=== PATIENT | female | born 1940 | race Caucasian/White ===

== ENCOUNTER → 2016-12-01 | Outpatient (CLI) | payer MEDICARE, MEDICAID ==
[2016-12-01 17:11] LABS: ABSOLUTE EOSINOPHILS # (AUTO) 0.1 10^3/uL (0.0-0.6); ABSOLUTE LYMPHOCYTES (AUTO) 1.2 10^3/uL (0.5-4.7); ABSOLUTE MONOCYTES (AUTO) 0.6 10^3/uL (0.1-1.4); ABSOLUTE NEUT (AUTO) 6.4 10^3/uL (1.7-8.2); BASOPHILS % (AUTO) 0.4 % (0-2); HEMATOCRIT 40.1 % (36.0-47.0); HEMOGLOBIN 13.6 g/dL (12.0-15.5); HGB HCT DIFFERENCE 0.7; LYMPHOCYTES % (AUTO) 14.6 % (13-45); MEAN CORPUSCULAR HEMOGLOBIN 30.1 pg (27.0-33.4); MEAN CORPUSCULAR VOLUME 88 fl (80-97); MONOCYTES % (AUTO) 7.7 % (3-13); RED BLOOD COUNT 4.53 10^6/uL (3.72-5.28); SEGMENTED NEUTROPHILS % (AUTO) 76.3 % (42-78); WHITE BLOOD COUNT 8.4 10^3/uL (4.0-10.5)
== END ==
LOC: OD 16:29
PROVIDERS: ATTEND Specialist
DX: D50.9 Iron deficiency anemia, unspecified (principal)
CPT/HCPCS: 36415; 85025

== ENCOUNTER 2017-02-26 18:28 | Inpatient (IN) | payer MEDICARE, MEDICAID ==
--- NOTE | 2017-02-26 18:54 | ER Document Report ---
ED Medical Screen (RME) - General Mode of Arrival: Ambulatory Information source: Patient TRAVEL OUTSIDE OF THE [place] IN LAST 30 DAYS: No <FOREIGN REICH - Last Filed: 02/26/17 18:52> <CORWIN CANNON - Last Filed: 02/27/17 14:43> - General Chief Complaint: Leg Pain Stated Complaint: SORE ON LEG Time Seen by Provider: 02/26/17 18:52 Notes: 76-year-old female presents to ED for a infected sore to the right ankle. She states she was seen by Dr. Tripathi on 02/23/2017 and told she had an infected diabetic sore and was started on clindamycin. She was told to follow-up with the wound clinic on Wednesday. She states the infection has gotten worse emergency room. She states she is afraid of losing her foot if she does not come in and get seen. I have greeted and performed a rapid initial assessment of this patient. A comprehensive ED assessment and evaluation of the patient, analysis of test results and completion of medical decision making process will be conducted by an additional ED providers. (FOREIGN REICH) - Related Data Allergies/Adverse Reactions: codeine [Codeine] Adverse Reaction (Mild, Verified 02/26/17 18:38) Nausea and vomiting Past Medical History - Past Medical History Cardiac Medical History: Reports: Hx Atrial Fibrillation, Hx Congestive Heart Failure, Hx Hypercholesterolemia, Hx Hypertension Denies: Hx Coronary Artery Disease, Hx Heart Attack Pulmonary Medical History: Reports: Hx Bronchitis, Hx Pneumonia Denies: Hx Asthma, Hx COPD Neurological Medical History: Denies: Hx Cerebrovascular Accident, Hx Seizures Endocrine Medical History: Reports: Hx Diabetes Mellitus Type 2 Renal/ Medical History: Denies: Hx Peritoneal Dialysis Musculoskeltal Medical History: Reports Hx Arthritis Past Surgical History: Reports: Hx Hysterectomy. Denies: Hx Pacemaker - Immunizations Hx Diphtheria, Pertussis, Tetanus Vaccination: Yes <FOREIGN REICH - Last Filed: 02/26/17 18:52> Course - Laboratory Result Diagrams: 02/27/17 05:03 02/27/17 05:03 <CORWIN CANNON - Last Filed: 02/27/17 14:43> - Vital Signs Vital signs: Temp Pulse Resp BP Pulse Ox 98.7 F 91 20 142/63 H 97 02/27/17 11:42 02/27/17 11:42 02/27/17 11:42 02/27/17 11:42 02/27/17 11:42 - Laboratory Laboratory results interpreted by me: 02/26/17 02/26/17 19:20 19:20 Chloride 97 L Est GFR (Non-Af Amer) 59 L Glucose 434 H* Hemoglobin A1c % 8.7 H AST 44 H Doctor's Discharge <FOREIGN REICH - Last Filed: 02/26/17 18:52> <CORWIN CANNON - Last Filed: 02/27/17 14:43> - Discharge Clinical Impression: diabetic wound, Cellulitis, failed outpaitent therapy Condition: Stable Disposition: ADMITTED OBSERVATION
[2017-02-26 19:40] LABS: ABSOLUTE EOSINOPHILS # (AUTO) 0.1 10^3/uL (0.0-0.6); ABSOLUTE LYMPHOCYTES (AUTO) 1.4 10^3/uL (0.5-4.7); ABSOLUTE MONOCYTES (AUTO) 0.7 10^3/uL (0.1-1.4); ABSOLUTE NEUT (AUTO) 4.9 10^3/uL (1.7-8.2); BASOPHILS % (AUTO) 0.6 % (0-2); EOSINOPHILS % (AUTO) 1.5 % (0-6); HEMOGLOBIN 14.5 g/dL (12.0-15.5); HGB HCT DIFFERENCE 0.5; LYMPHOCYTES % (AUTO) 19.5 % (13-45); MEAN CORPUSCULAR HEMOGLOBIN 30.6 pg (27.0-33.4); MEAN CORPUSCULAR HGB CONC 33.7 g/dL (32.0-36.0); MEAN CORPUSCULAR VOLUME 91 fl (80-97); MONOCYTES % (AUTO) 9.5 % (3-13); RED BLOOD COUNT 4.74 10^6/uL (3.72-5.28); RED CELL DISTRIBUTION WIDTH 13.5 % (11.5-14.0); SEGMENTED NEUTROPHILS % (AUTO) 68.9 % (42-78); WHITE BLOOD COUNT 7.2 10^3/uL (4.0-10.5)
[2017-02-26 20:00] LABS: ALANINE AMINOTRANSFERASE 42 U/L (9-52); ALKALINE PHOSPHATASE 102 U/L (38-126); ANION GAP 12 (5-19); ASPARTATE AMINO TRANSFERASE 44 U/L (14-36); BILIRUBIN,DIRECT 0.3 mg/dL (0.0-0.4); BILIRUBIN,TOTAL 0.5 mg/dL (0.2-1.3); BLOOD UREA NITROGEN 15 mg/dL (7-20); CALCIUM 9.3 mg/dL (8.4-10.2); CARBON DIOXIDE 30 mmol/L (22-30); CHLORIDE 97 mmol/L (98-107); CREATININE RESULT 0.92 mg/dL (0.52-1.25); POTASSIUM 4.4 mmol/L (3.6-5.0); SODIUM 138.5 mmol/L (137-145); TOTAL PROTEIN 7.1 g/dL (6.3-8.2)
[2017-02-26 20:14] LABS: GLUCOSE 434 mg/dL (75-110)
[2017-02-26] MEDS ORDERED: VANCOMYCIN HCL INJ 1000 MG VIAL IV ONE (21:09)
[2017-02-26] MEDS ORDERED: PIPERACILLIN/TAZOBACTAM 3.375 GM VIAL IV ONE (21:09)
--- NOTE | 2017-02-26 21:10 | ER Document Report ---
ED General - General Chief Complaint: Leg Pain Stated Complaint: SORE ON LEG Time Seen by Provider: 02/26/17 18:52 Mode of Arrival: Ambulatory Information source: Patient Notes: 76 yr old female diabetic presents with a right leg wound of over 1 week duration. pt seen by her poditrist placed on clinda for 4 days and noted the blister popped and the redness and worsened TRAVEL OUTSIDE OF THE [place] IN LAST 30 DAYS: No - HPI Onset: Last week Onset/Duration: Persistent, Worse Quality of pain: Achy Severity: Mild Pain Level: 1 Associated symptoms: Other Exacerbated by: Denies Relieved by: Denies Similar symptoms previously: Yes Recently seen / treated by doctor: Yes - Related Data Allergies/Adverse Reactions: codeine [Codeine] Adverse Reaction (Mild, Verified 02/26/17 18:38) Nausea and vomiting Past Medical History - General Information source: Patient - Social History Smoking Status: Never Smoker Cigarette use (# per day): No Chew tobacco use (# tins/day): No Smoking Education Provided: No Frequency of alcohol use: None Drug Abuse: None Family History: Reviewed & Not Pertinent Patient has suicidal ideation: No Patient has homicidal ideation: No - Past Medical History Cardiac Medical History: Reports: Hx Atrial Fibrillation, Hx Congestive Heart Failure, Hx Hypercholesterolemia, Hx Hypertension Denies: Hx Coronary Artery Disease, Hx Heart Attack Pulmonary Medical History: Reports: Hx Bronchitis, Hx Pneumonia Denies: Hx Asthma, Hx COPD Neurological Medical History: Denies: Hx Cerebrovascular Accident, Hx Seizures Endocrine Medical History: Reports: Hx Diabetes Mellitus Type 2 Renal/ Medical History: Denies: Hx Peritoneal Dialysis GI Medical History: Reports: Hx Gastroesophageal Reflux Disease Musculoskeltal Medical History: Reports Hx Arthritis Psychiatric Medical History: Reports: Hx Depression Past Surgical History: Reports: Hx Hysterectomy, Hx Orthopedic Surgery - rt hip replacement 2004, carpal tunne release rt hand. Denies: Hx Pacemaker - Immunizations Hx Diphtheria, Pertussis, Tetanus Vaccination: Yes Hx Pneumococcal Vaccination: 09/06/09 Review of Systems - Review of Systems Notes: REVIEW OF SYSTEMS: CONSTITUTIONAL : Denies fever, chills, or sweats. Denies recent illness. EENT: Denies eye, ear, throat, or mouth pain or symptoms. Denies nasal or sinus congestion or discharge. Denies throat, tongue, or mouth swelling or difficulty swallowing. CARDIOVASCULAR: Denies chest pain. Denies palpitations or racing or irregular heart beat. Denies ankle edema. RESPIRATORY: Denies cough, cold, or chest congestion. Denies shortness of breath, difficulty breathing, or wheezing. GASTROINTESTINAL: Denies abdominal pain or distention. Denies nausea, vomiting , or diarrhea. Denies blood in vomitus, stools, or per rectum. Denies black, tarry stools. Denies constipation. GENITOURINARY: Denies difficulty urinating, painful urination, burning, frequency, blood in urine, or discharge. FEMALE GENITOURINARY: Denies vaginal bleeding, heavy or abnormal periods, irregular periods. Denies vaginal discharge or odor. MUSCULOSKELETAL: Denies back or neck pain or stiffness. Denies joint pain or swelling. SKIN: leg wound HEMATOLOGIC : Denies easy bruising or bleeding. LYMPHATIC: Denies swollen, enlarged glands. NEUROLOGICAL: Denies confusion or altered mental status. Denies passing out or loss of consciousness. Denies dizziness or lightheadedness. Denies headache. Denies weakness or paralysis or loss of use of either side. Denies problems with gait or speech. Denies sensory loss, numbness, or tingling. Denies seizures. PSYCHIATRIC: Denies anxiety or stress. Denies depression, suicidal ideation, or homicidal ideation. ALL OTHER SYSTEMS REVIEWED AND NEGATIVE. PHYSICAL EXAMINATION: GENERAL: Well-appearing, well-nourished and in no acute distress. HEAD: Atraumatic, normocephalic. EYES: Pupils equal round and reactive to light, extraocular movements intact, conjunctiva are normal. ENT: Nares patent, oropharynx clear without exudates. Moist mucous membranes. NECK: Normal range of motion, supple without lymphadenopathy LUNGS: Breath sounds clear to auscultation bilaterally and equal. No wheezes rales or rhonchi. HEART: Regular rate and rhythm without murmurs ABDOMEN: Soft, nontender, nondistended abdomen. No guarding, no rebound. No masses appreciated. Female : deferred Musculoskeletal: Normal range of motion, no pitting or edema. No cyanosis. NEUROLOGICAL: Cranial nerves grossly intact. Normal speech, normal gait. Normal sensory, motor exams PSYCH: Normal mood, normal affect. SKIN: area of cellulitis from the midfoot to the mid demarco, open blister Dictation was performed using Dahu recognition software Physical Exam - Vital signs Vitals: Temp Pulse Resp BP Pulse Ox 98.1 F 82 15 146/75 H 98 02/26/17 18:38 02/26/17 18:38 02/26/17 18:38 02/26/17 18:38 02/26/17 18:38 Course - Re-evaluation Re-evalutation: 02/27/17 03:42 pt is very hyperglycemic, started on iv fluoids pt will require iv antiobitcs due to failed out patient oral antibiotics - Vital Signs Vital signs: Temp Pulse Resp BP Pulse Ox 97.3 F 78 18 137/116 H 100 02/26/17 23:42 02/26/17 23:42 02/26/17 23:42 02/26/17 23:42 02/26/17 23:42 - Laboratory Result Diagrams: 02/26/17 19:20 02/26/17 19:20 Laboratory results interpreted by me: 02/26/17 02/26/17 19:20 19:20 Chloride 97 L Est GFR (Non-Af Amer) 59 L Glucose 434 H* Hemoglobin A1c % 8.7 H AST 44 H Discharge - Discharge Clinical Impression: diabetic wound, failed outpaitent therapy Cellulitis Qualifiers: Site of cellulitis: extremity Site of cellulitis of extremity: lower extremity Laterality: right Qualified Code(s): L03.115 - Cellulitis of right lower limb Condition: Stable Disposition: ADMITTED OBSERVATION Admitting Provider: Hospitalist Unit Admitted: Medical Floor
[2017-02-26] MEDS ORDERED: ACETAMINOPHEN 325 MG TABLET PO PRN (21:12)
[2017-02-26] MEDS ORDERED: MAGNESIUM HYDROXIDE SUSP 30 ML UDCUP PO PRN (21:12)
[2017-02-26] MEDS ORDERED: NORMAL SALINE 1000 ML 1,000 ML IV ONE (21:17)
[2017-02-26] MEDS ORDERED: DEXTROSE 50%-WATER 25 GM/50 ML DISP.SYRIN IV PRN ×2 (21:19)
[2017-02-26] MEDS ORDERED: GLUCAGON,HUMAN RECOMB 1 MG INJ IM PRN (21:19)
[2017-02-26] MEDS ORDERED: DEXTROSE 40% GEL 15 GM TUBE PO PRN ×2 (21:19)
[2017-02-26] MEDS ORDERED: VANCOMYCIN HCL 0 MG in DEXTROSE 5%-WATER 250 ML IV NR (21:30)
[2017-02-26] MEDS ORDERED: CYCLOSPORINE 0.05% OPH EMULSIO 0.4 ML DROPERETTE OD SCH (21:30)
[2017-02-26] MEDS: NORMAL SALINE 1000 ML 1,000 ML IV PRN ×2 (21:39→21:41)
[2017-02-26] MEDS ORDERED: (PENDING PHARMACY ID) (Diclofenac Sodium [Voltaren] 1 GM) TP SCH (22:00)
[2017-02-26] MEDS: HEPARIN SOD (PORCINE) 5,000 UNIT/ML 1 ML SYRINGE SUBCUT SCH (22:31)
[2017-02-26] MEDS: INSULIN LISPRO 100 UNIT/ML 3 ML VIAL SUBCUT PRN (22:42)
--- NOTE | 2017-02-26 23:07 | PDOC H&P ---
History of Present Illness Admission Date/PCP: 02/26/17 21:13 TANNER MASTERSON MD Patient complains of: Right leg ulcer History of Present Illness: SKIP HER is a 76 year old female with a past medical history of dementia, A. fib, hypertension, dyslipidemia and diabetes who had been in her usual state of health until approximately a week ago noting large 4 x 4 centimeter blister to the medial lower leg. She treated this with a topical antibiotic and was seen by her trim setter helper Dr. Mora who initiated clindamycin the blister has since ruptured and she has applied Silvadene ointment. The area has become red and tender to the posterior leg prompting her to seek evaluation emergency room where she is placed on vancomycin and Zosyn and referred to the hospitalist for admission. The patient admits several previous episodes which have resolved spontaneously. She denies new medications or exceptional poor control of diabetes. Past Medical History Cardiac Medical History: Reports: Atrial Fibrillation, Congestive Heart Failure , Hyperlipidema, Hypertension Denies: Coronary Artery Disease, Myocardial Infarction Pulmonary Medical History: Reports: Bronchitis, Pneumonia Denies: Asthma, Chronic Obstructive Pulmonary Disease (COPD) Neurological Medical History: Denies: Seizures Endocrine Medical History: Reports: Diabetes Mellitus Type 2 GI Medical History: Reports: Gastroesophageal Reflux Disease Musculoskeltal Medical History: Reports: Arthritis Psychiatric Medical History: Reports: Depression Hematology: Reports: Anemia Past Surgical History Past Surgical History: Reports: Hysterectomy, Orthopedic Surgery - rt hip replacement 2004, carpal tunne release rt hand Denies: Pacemaker Social History Information Source: Patient Smoking Status: Never Smoker Frequency of Alcohol Use: None Hx Recreational Drug Use: No Drugs: None - Advance Directive Resuscitation Status: Full Code Family History Family History: DM, Hypertension, Other - Brother with peripheral vascular disease Parental Family History Reviewed: Yes Children Family History Reviewed: Yes Sibling(s) Family History Reviewed.: Yes Medication/Allergy Home Medications: Citalopram Hydrobromide [Celexa 20 mg Tablet] 20 mg PO DAILY 02/08/12 Dexlansoprazole [Dexilant 60 mg Capsule] 60 mg PO DAILY 02/08/12 Diclofenac Sodium [Voltaren] 1 gm TP QID 02/08/12 Donepezil HCl [Aricept] 1 tab PO DAILY 02/08/12 Fluticasone Furoate [Veramyst] 2 spray NAREB DAILY 02/08/12 Furosemide [Lasix 40 mg Tablet] 80 mg PO BID 02/08/12 Hum Insulin NPH/Reg Insulin Hm [Novolin 70-30 100 Unit/ml Vial] 40 units SQ BID 02/08/12 Levothyroxine Sodium [Tirosint] 50 mcg PO DAILY 02/08/12 Memantine HCl [Namenda 10 mg Tablet] 10 mg PO BID 02/08/12 Triamcinolone 1 gm MC PRN PRN 02/08/12 Clotrimazole 1% Topical [Lotrimin 1% Topical Soln 10 ml] 1 applic TOP PRN PRN Ergocalciferol (Vitamin D2) [Drisdol] 1 tab PO [id number] 01/26/14 Meclizine HCl 1 tab PO QID PRN 01/26/14 Tramadol HCl 1 tab PO TID PRN 01/26/14 Albuterol Sulfate [Proair HFA] 1 - 2 puff IH Q4 PRN 07/31/14 Dabigatran Etexilate Mesylate [Pradaxa 150 mg Capsule] 150 mg PO Q12 07/31/14 Metoprolol Succinate 50 mg PO DAILY 07/31/14 Nitroglycerin [Nitrostat 0.4 mg (1/150 Gr) Tabs 25/Bottle] 1 tab SL Q5MP PRN Potassium Chloride [Klor-Con 10 Meq Tablet.sa] 20 meq PO DAILY #30 tablet.sa Simvastatin 20 mg PO QHS #30 tablet 08/01/14 Cyclosporine 0.05% Oph Emulsio [Restasis 0.05% Opthalmic Droperette] 1 drop OD ASDIR 07/23/15 Diltiazem HCl [Diltiazem 24Hr Cd] 240 mg PO DAILY 07/23/15 Allergies/Adverse Reactions: codeine [Codeine] Adverse Reaction (Mild, Verified 02/26/17 18:38) Nausea and vomiting Review of Systems Constitutional: ABSENT: chills, fever(s), headache(s), weight gain, weight loss Eyes: ABSENT: visual disturbances Ears: ABSENT: hearing changes Cardiovascular: ABSENT: chest pain, dyspnea on exertion, edema, orthropnea, palpitations Respiratory: ABSENT: cough, hemoptysis Gastrointestinal: ABSENT: abdominal pain, constipation, diarrhea, hematemesis, hematochezia, nausea, vomiting Genitourinary: ABSENT: dysuria, hematuria Musculoskeletal: ABSENT: joint swelling Integumentary: ABSENT: rash, wounds Neurological: ABSENT: abnormal gait, abnormal speech, confusion, dizziness, focal weakness, syncope Psychiatric: ABSENT: anxiety, depression, homidical ideation, suicidal ideation Endocrine: ABSENT: cold intolerance, heat intolerance, polydipsia, polyuria Hematologic/Lymphatic: ABSENT: easy bleeding, easy bruising Physical Exam Vital Signs: Temp Pulse Resp BP Pulse Ox 98.1 F 82 15 146/75 H 98 02/26/17 18:38 02/26/17 18:38 02/26/17 18:38 02/26/17 18:38 02/26/17 18:38 Intake & Output 02/25/17 02/26/17 02/27/17 11:59 11:59 11:59 Weight 102.3 kg General appearance: PRESENT: no acute distress, well-developed, well-nourished Head exam: PRESENT: atraumatic, normocephalic Eye exam: PRESENT: conjunctiva pink, EOMI, PERRLA. ABSENT: scleral icterus Ear exam: PRESENT: normal external ear exam Mouth exam: PRESENT: moist, tongue midline Neck exam: ABSENT: carotid bruit, JVD, lymphadenopathy, thyromegaly Respiratory exam: PRESENT: clear to auscultation mari. ABSENT: rales, rhonchi, wheezes Cardiovascular exam: PRESENT: RRR. ABSENT: diastolic murmur, rubs, systolic murmur Pulses: PRESENT: normal dorsalis pedis pul Vascular exam: PRESENT: normal capillary refill GI/Abdominal exam: PRESENT: normal bowel sounds, soft. ABSENT: distended, guarding, mass, organolmegaly, rebound, tenderness Rectal exam: PRESENT: deferred Extremities exam: PRESENT: full ROM, tenderness, +1 edema. ABSENT: calf tenderness, clubbing, pedal edema Neurological exam: PRESENT: alert, awake, oriented to person, oriented to place , oriented to time, oriented to situation, CN II-XII grossly intact. ABSENT: motor sensory deficit Psychiatric exam: PRESENT: appropriate affect, normal mood. ABSENT: homicidal ideation, suicidal ideation Skin exam: PRESENT: dry, intact, warm. ABSENT: cyanosis, rash Adult Front & Back Image: 1 - Circumferential erythema, 4 x 4 centimeter ulcer without exudate though tenderness involves the posterior leg Assessment & Plan - Diagnosis (1) Cellulitis Qualifiers: Site of cellulitis: extremity Site of cellulitis of extremity: lower extremity Laterality: right Qualified Code(s): L03.115 - Cellulitis of right lower limb Is this a current diagnosis for this admission?: YesPlan: Diabetic foot ulcer with cellulitis concerning for MRSA and extension to the posterior leg possibly Achilles tendinitis. She is placed on vancomycin and Zosyn empirically with blood and wound culture. Surgery consulted, outpatient wound care clinic anticipated (2) Diabetes Qualifiers: Diabetes mellitus type: type 1 Is this a current diagnosis for this admission?: YesPlan: Unclear control evaluate A1c continue sliding-scale insulin consider addition of long-acting insulin. (3) Afib Is this a current diagnosis for this admission?: YesPlan: Rate control on anticoagulation continue outpatient regiment - Time Time Spent: 30 to 50 Minutes - Inpatient Certification Medical Necessity: Need Close Monitoring Due to Risk of Patient Decompensation
[2017-02-27] MEDS ORDERED: PIPERACILLIN SODIUM/TAZOBACTAM 4.5 GM in NORMAL SALINE 100 ML IV SCH ×2
[2017-02-27] MEDS: DABIGATRAN ETEXILATE 150 MG CAPSULE PO SCH ×3 (00:49→21:49)
[2017-02-27] MEDS: SIMVASTATIN 10 MG TABLET PO SCH ×2 (00:49→21:49)
[2017-02-27] MEDS ORDERED: PIPERACILLIN/TAZOBACTAM 4.5 GM VIAL IV ONE (02:08)
[2017-02-27] MEDS: HEPARIN SOD (PORCINE) 5,000 UNIT/ML 1 ML SYRINGE SUBCUT SCH ×3 (06:04→21:49)
[2017-02-27] MEDS: LANSOPRAZOLE 30 MG TAB.RAP.DR PO SCH (06:04)
[2017-02-27 06:23] LABS: ABSOLUTE EOSINOPHILS # (AUTO) 0.1 10^3/uL (0.0-0.6); ABSOLUTE LYMPHOCYTES (AUTO) 1.8 10^3/uL (0.5-4.7); ABSOLUTE MONOCYTES (AUTO) 0.7 10^3/uL (0.1-1.4); ABSOLUTE NEUT (AUTO) 4.4 10^3/uL (1.7-8.2); BASOPHILS % (AUTO) 0.6 % (0-2); EOSINOPHILS % (AUTO) 2.1 % (0-6); HEMOGLOBIN 13.3 g/dL (12.0-15.5); HGB HCT DIFFERENCE -0.1; LYMPHOCYTES % (AUTO) 25.3 % (13-45); MEAN CORPUSCULAR HEMOGLOBIN 30.3 pg (27.0-33.4); MEAN CORPUSCULAR HGB CONC 33.2 g/dL (32.0-36.0); MEAN CORPUSCULAR VOLUME 91 fl (80-97); MONOCYTES % (AUTO) 10.4 % (3-13); RED BLOOD COUNT 4.38 10^6/uL (3.72-5.28); RED CELL DISTRIBUTION WIDTH 13.7 % (11.5-14.0); SEGMENTED NEUTROPHILS % (AUTO) 61.6 % (42-78); WHITE BLOOD COUNT 7.2 10^3/uL (4.0-10.5)
[2017-02-27 06:41] LABS: ANION GAP 10 (5-19); BLOOD UREA NITROGEN 13 mg/dL (7-20); CALCIUM 8.7 mg/dL (8.4-10.2); CARBON DIOXIDE 30 mmol/L (22-30); CHLORIDE 104 mmol/L (98-107); CREATININE RESULT 0.81 mg/dL (0.52-1.25); GLUCOSE 114 mg/dL (75-110); POTASSIUM 3.9 mmol/L (3.6-5.0); SODIUM 144.2 mmol/L (137-145)
--- NOTE | 2017-02-27 07:35 | PDOC PROGRESS REPORT ---
Subjective Progress Note for:: 02/27/17 Subjective:: 8d pain medial L leg around big ulcer in spite of Dr Barroso's clindamycin. Now about the same after debridement. Physical Exam Vital Signs: Temp Pulse Resp BP Pulse Ox 97.3 F 78 18 137/116 H 100 02/26/17 23:42 02/26/17 23:42 02/26/17 23:42 02/26/17 23:42 02/26/17 23:42 Intake & Output 02/25/17 02/26/17 02/27/17 07:59 07:59 07:59 Intake Total 600 Balance 600 Weight 231 lb 11.293 oz General appearance: PRESENT: no acute distress Respiratory exam: PRESENT: clear to auscultation mari Cardiovascular exam: PRESENT: irregular rhythm. ABSENT: diastolic murmur, systolic murmur GI/Abdominal exam: ABSENT: mass, organolmegaly, tenderness Extremities exam: PRESENT: pedal edema - 1+ Skin exam: PRESENT: other - medial L venous leg ulcer 6cm under fresh dressing with tender erythema lower 2 thirds of leg Results Laboratory Results: 02/27/17 05:03 02/27/17 05:03 02/27/17 02/27/17 05:03 05:03 WBC 7.2 RBC 4.38 Hgb 13.3 Hct 40.0 MCV 91 MCH 30.3 MCHC 33.2 RDW 13.7 Plt Count 275 Seg Neutrophils % 61.6 Lymphocytes % 25.3 Monocytes % 10.4 Eosinophils % 2.1 Basophils % 0.6 Absolute Neutrophils 4.4 Absolute Lymphocytes 1.8 Absolute Monocytes 0.7 Absolute Eosinophils 0.1 Absolute Basophils 0.0 Sodium 144.2 Potassium 3.9 Chloride 104 Carbon Dioxide 30 Anion Gap 10 BUN 13 Creatinine 0.81 Est GFR ( Amer) > 60 Est GFR (Non-Af Amer) > 60 Glucose 114 H Calcium 8.7 Assessment & Plan - Diagnosis (1) Cellulitis Qualifiers: Site of cellulitis: extremity Site of cellulitis of extremity: lower extremity Laterality: left Qualified Code(s): L03.116 - Cellulitis of left lower limb Is this a current diagnosis for this admission?: YesPlan: continue vanc & zosyn
[2017-02-27] MEDS: DILTIAZEM HCL 240 MG CAPSULE.CR PO SCH (09:37)
[2017-02-27] MEDS: DOCUSATE SODIUM 100 MG CAPSULE PO SCH ×2 (09:39→17:39)
[2017-02-27] MEDS: POTASSIUM CHLORIDE 10 MEQ TABLET.SA PO SCH (09:40)
[2017-02-27] MEDS: FUROSEMIDE 80 MG TABLET PO SCH ×2 (09:41→17:39)
[2017-02-27] MEDS: DONEPEZIL HCL 5 MG TABLET PO SCH (09:41)
[2017-02-27] MEDS: MEMANTINE HCL 10 MG TABLET PO SCH ×2 (09:42→17:39)
[2017-02-27] MEDS: METOPROLOL SUCCINATE 50 MG TAB.SR.24H PO SCH (09:42)
[2017-02-27] MEDS: CITALOPRAM HYDROBROMIDE 20 MG TABLET PO SCH (09:42)
[2017-02-27] MEDS: HUM INSULIN NPH/REG INSULIN HM 100 UNIT/1 ML 3 ML SUBCUT SCH ×2 (09:43→17:40)
[2017-02-27] MEDS ORDERED: FLUTICASONE FUROATE NAREB SCH (10:00)
[2017-02-27] MEDS ORDERED: (PENDING PHARMACY ID) (Diltiazem Hcl [Diltiazem 24hr Cd] 240 MG) PO SCH (10:00)
[2017-02-27] MEDS ORDERED: FUROSEMIDE 40 MG TABLET PO SCH (10:00)
[2017-02-27] MEDS ORDERED: LEVOTHYROXINE SODIUM 50 MCG PO SCH (10:00)
[2017-02-27] MEDS ORDERED: DONEPEZIL HCL PO SCH (10:00)
[2017-02-27] MEDS: VANCOMYCIN HCL 750 MG in DEXTROSE 5%-WATER 250 ML IV SCH ×2 (10:15→21:49)
[2017-02-27] MEDS: FLUTICASONE NASAL SPRAY 50 MCG/SPRY 120 SPRAY/16 GM NASL SCH (10:15)
[2017-02-27] MEDS: IPRATROPIUM/ALBUTEROL 0.5-2.5 MG/3 ML AMPUL NEB PRN (10:57)
--- NOTE | 2017-02-27 13:28 | OPERATIVE REPORT E ---
Operative Report NAME: SKIP HER : 1940 AGE: 76Y DATE OF SURGERY: 02/27/2017 ROOM: 402 PREOPERATIVE DIAGNOSIS: Advanced cellulitis, right lower extremity, with superficial ulcer. POSTOPERATIVE DIAGNOSIS: Advanced cellulitis, right lower extremity, with superficial ulcer. OPERATION: Excisional debridement of superficial ulcer, right lower extremity. SURGEON: BRET JOHNSTON M.D. ANESTHESIA: None. COMPLICATIONS: None. ESTIMATED BLOOD LOSS: None. DRAINS: None. SUMMARY OF PROCEDURE: The patient's right leg was exposed at bedside. Exudate and skin were sharply removed using index finger and fine scissors. The central portion of the superficial ulcer had some cellulous slough which was mopped off using a 4 x 4. The amount of tissue removed was approximately 0.5 gm. Appropriate dressings, leg elevation and nursing instruction provided. DICTATING PHYSICIAN: BRET JOHNSTON M.D. [id number] PHY#: [id number] ID: [id number] JOB#: [id number] ACCT: [id number] cc:BRET JOHNSTON M.D. >
[2017-02-27] MEDS: INSULIN LISPRO 100 UNIT/ML 3 ML VIAL SUBCUT PRN ×3 (14:55→22:25)
[2017-02-27] MEDS: PIPERACILLIN SODIUM/TAZOBACTAM 4.5 GM in NORMAL SALINE 100 ML IV SCH ×2 (14:57→21:51)
[2017-02-28] MEDS: PIPERACILLIN SODIUM/TAZOBACTAM 4.5 GM in NORMAL SALINE 100 ML IV SCH ×4 (03:17→21:48)
[2017-02-28 04:56] LABS: ABSOLUTE BASOPHILS # (AUTO) 0.1 10^3/uL (0.0-0.2); ABSOLUTE EOSINOPHILS # (AUTO) 0.1 10^3/uL (0.0-0.6); ABSOLUTE LYMPHOCYTES (AUTO) 1.8 10^3/uL (0.5-4.7); ABSOLUTE MONOCYTES (AUTO) 0.7 10^3/uL (0.1-1.4); ABSOLUTE NEUT (AUTO) 4.2 10^3/uL (1.7-8.2); BASOPHILS % (AUTO) 1.2 % (0-2); EOSINOPHILS % (AUTO) 1.9 % (0-6); HEMATOCRIT 39.1 % (36.0-47.0); HEMOGLOBIN 13.1 g/dL (12.0-15.5); HGB HCT DIFFERENCE 0.2; MEAN CORPUSCULAR HEMOGLOBIN 30.3 pg (27.0-33.4); MEAN CORPUSCULAR HGB CONC 33.6 g/dL (32.0-36.0); MEAN CORPUSCULAR VOLUME 90 fl (80-97); MONOCYTES % (AUTO) 10.4 % (3-13); RED BLOOD COUNT 4.33 10^6/uL (3.72-5.28); RED CELL DISTRIBUTION WIDTH 13.5 % (11.5-14.0); SEGMENTED NEUTROPHILS % (AUTO) 60.5 % (42-78)
[2017-02-28] MEDS: LANSOPRAZOLE 30 MG TAB.RAP.DR PO SCH (05:40)
[2017-02-28] MEDS: LEVOTHYROXINE SODIUM 0.05 MG TABLET PO SCH (06:02)
--- NOTE | 2017-02-28 07:18 | PDOC PROGRESS REPORT ---
Subjective Progress Note for:: 02/28/17 Subjective:: less R leg pain Physical Exam Vital Signs: Temp Pulse Resp BP Pulse Ox 98.5 F 89 17 141/86 H 99 02/27/17 23:51 02/27/17 23:51 02/27/17 23:51 02/27/17 23:51 02/27/17 23:51 Intake & Output 02/26/17 02/27/17 02/28/17 07:59 07:59 07:59 Intake Total 600 1792 Balance 600 1792 Weight 231 lb 11.293 oz 229 lb 4.492 oz General appearance: PRESENT: no acute distress Respiratory exam: PRESENT: clear to auscultation mari Cardiovascular exam: PRESENT: irregular rhythm, systolic murmur. ABSENT: diastolic murmur Murmur grade: 1 GI/Abdominal exam: ABSENT: mass, organolmegaly, tenderness Neurological exam: PRESENT: oriented to situation Psychiatric exam: PRESENT: appropriate affect Skin exam: PRESENT: erythema - less on R leg Results Laboratory Results: 02/28/17 03:44 02/27/17 05:03 02/28/17 03:44 WBC 7.0 RBC 4.33 Hgb 13.1 Hct 39.1 MCV 90 MCH 30.3 MCHC 33.6 RDW 13.5 Plt Count 267 Seg Neutrophils % 60.5 Lymphocytes % 26.0 Monocytes % 10.4 Eosinophils % 1.9 Basophils % 1.2 Absolute Neutrophils 4.2 Absolute Lymphocytes 1.8 Absolute Monocytes 0.7 Absolute Eosinophils 0.1 Absolute Basophils 0.1 Assessment & Plan - Diagnosis (1) Cellulitis Qualifiers: Site of cellulitis: extremity Site of cellulitis of extremity: lower extremity Laterality: right Qualified Code(s): L03.115 - Cellulitis of right lower limb Is this a current diagnosis for this admission?: YesPlan: continue zosyn & vanc. Consider home on augmentin in 1-2 days. (2) Diabetes Qualifiers: Diabetes mellitus type: type 2 Diabetes mellitus complication status: without complication Diabetes mellitus residential insulin use: with silica filter operator use Qualified Code(s): E11.9 - Type 2 diabetes mellitus without complications; Z79.4 - half-way (current) use of insulin Is this a current diagnosis for this admission?: YesPlan: increased insulin - Inpatient Certification Based on my medical assessment, after consideration of the patient's comorbidities, presenting symptoms, or acuity I expect that the services needed warrant INPATIENT care.: Yes I certify that my determination is in accordance with my understanding of Medicare's requirements for reasonable and necessary INPATIENT services [42 CFR 412.3e].: Yes Medical Necessity: Failure to Improve With Outpatient Therapy, Significant Comorbidiites Make Outpatient Treatment Too Risky, Need for IV Antibiotics, Risk of Complication if Not Cared For in Hospital - amputation
[2017-02-28] MEDS: HUM INSULIN NPH/REG INSULIN HM 100 UNIT/1 ML 3 ML SUBCUT SCH ×2 (07:54→17:42)
[2017-02-28] MEDS: DABIGATRAN ETEXILATE 150 MG CAPSULE PO SCH ×2 (10:08→21:47)
[2017-02-28] MEDS: POTASSIUM CHLORIDE 10 MEQ TABLET.SA PO SCH (10:09)
[2017-02-28] MEDS: DONEPEZIL HCL 5 MG TABLET PO SCH (10:10)
[2017-02-28] MEDS: FUROSEMIDE 80 MG TABLET PO SCH ×2 (10:11→17:40)
[2017-02-28] MEDS: DILTIAZEM HCL 240 MG CAPSULE.CR PO SCH (10:11)
[2017-02-28] MEDS: MEMANTINE HCL 10 MG TABLET PO SCH ×2 (10:11→17:41)
[2017-02-28] MEDS: METOPROLOL SUCCINATE 50 MG TAB.SR.24H PO SCH (10:12)
[2017-02-28] MEDS: FLUTICASONE NASAL SPRAY 50 MCG/SPRY 120 SPRAY/16 GM NASL SCH (10:13)
[2017-02-28] MEDS: VANCOMYCIN HCL 750 MG in DEXTROSE 5%-WATER 250 ML IV SCH (10:13)
[2017-02-28] MEDS: CITALOPRAM HYDROBROMIDE 20 MG TABLET PO SCH (10:13)
[2017-02-28] MEDS: DOCUSATE SODIUM 100 MG CAPSULE PO SCH ×2 (10:15→17:42)
[2017-02-28] MEDS: IPRATROPIUM/ALBUTEROL 0.5-2.5 MG/3 ML AMPUL NEB PRN (10:26)
[2017-02-28 10:37] LABS: CREATININE RESULT 0.73 mg/dL (0.52-1.25)
[2017-02-28] MEDS: INSULIN LISPRO 100 UNIT/ML 3 ML VIAL SUBCUT PRN (17:42)
[2017-02-28] MEDS: SIMVASTATIN 10 MG TABLET PO SCH (21:48)
[2017-02-28] MEDS: VANCOMYCIN HCL 1,250 MG in DEXTROSE 5%-WATER 250 ML IV SCH (22:57)
[2017-03-01] MEDS: PIPERACILLIN SODIUM/TAZOBACTAM 4.5 GM in NORMAL SALINE 100 ML IV SCH ×4 (03:30→21:37)
[2017-03-01 04:36] LABS: ABSOLUTE BASOPHILS # (AUTO) 0.1 10^3/uL (0.0-0.2); ABSOLUTE EOSINOPHILS # (AUTO) 0.2 10^3/uL (0.0-0.6); ABSOLUTE MONOCYTES (AUTO) 0.7 10^3/uL (0.1-1.4); ABSOLUTE NEUT (AUTO) 5.7 10^3/uL (1.7-8.2); BASOPHILS % (AUTO) 0.9 % (0-2); EOSINOPHILS % (AUTO) 1.8 % (0-6); HEMATOCRIT 39.6 % (36.0-47.0); HEMOGLOBIN 13.3 g/dL (12.0-15.5); HGB HCT DIFFERENCE 0.3; LYMPHOCYTES % (AUTO) 23.2 % (13-45); MEAN CORPUSCULAR HEMOGLOBIN 30.2 pg (27.0-33.4); MEAN CORPUSCULAR HGB CONC 33.6 g/dL (32.0-36.0); MEAN CORPUSCULAR VOLUME 90 fl (80-97); MONOCYTES % (AUTO) 8.7 % (3-13); RED BLOOD COUNT 4.41 10^6/uL (3.72-5.28); RED CELL DISTRIBUTION WIDTH 13.3 % (11.5-14.0); SEGMENTED NEUTROPHILS % (AUTO) 65.4 % (42-78); WHITE BLOOD COUNT 8.7 10^3/uL (4.0-10.5)
[2017-03-01] MEDS: LANSOPRAZOLE 30 MG TAB.RAP.DR PO SCH (06:00)
[2017-03-01] MEDS: LEVOTHYROXINE SODIUM 0.05 MG TABLET PO SCH (06:00)
[2017-03-01] MEDS: HUM INSULIN NPH/REG INSULIN HM 100 UNIT/1 ML 3 ML SUBCUT SCH ×2 (08:09→17:46)
--- NOTE | 2017-03-01 08:23 | PDOC PROGRESS REPORT ---
Subjective Progress Note for:: 03/01/17 Subjective:: R ankle still hurts Physical Exam Vital Signs: Temp Pulse Resp BP Pulse Ox 97.8 F 85 18 153/66 H 98 03/01/17 07:46 03/01/17 07:46 03/01/17 07:46 03/01/17 07:46 03/01/17 07:46 Intake & Output 02/28/17 03/01/17 03/02/17 07:59 07:59 07:59 Intake Total 1792 2200 Balance 1792 2200 Weight 229 lb 4.492 oz 219 lb 12.814 oz General appearance: PRESENT: no acute distress Murmur grade: 1 Skin exam: PRESENT: erythema - 4cm around L venous ulcer moderately tender Results Laboratory Results: 03/01/17 04:02 02/28/17 09:55 02/28/17 03/01/17 09:55 04:02 WBC 8.7 RBC 4.41 Hgb 13.3 Hct 39.6 MCV 90 MCH 30.2 MCHC 33.6 RDW 13.3 Plt Count 273 Seg Neutrophils % 65.4 Lymphocytes % 23.2 Monocytes % 8.7 Eosinophils % 1.8 Basophils % 0.9 Absolute Neutrophils 5.7 Absolute Lymphocytes 2.0 Absolute Monocytes 0.7 Absolute Eosinophils 0.2 Absolute Basophils 0.1 Creatinine 0.73 Est GFR ( Amer) > 60 Est GFR (Non-Af Amer) > 60 Assessment & Plan - Diagnosis (1) Cellulitis Qualifiers: Site of cellulitis: extremity Site of cellulitis of extremity: lower extremity Laterality: right Qualified Code(s): L03.115 - Cellulitis of right lower limb Is this a current diagnosis for this admission?: YesPlan: 1 more day IV antibiotics (2) Diabetes Qualifiers: Diabetes mellitus type: type 2 Diabetes mellitus complication status: without complication Diabetes mellitus [facility] insulin use: with [facility] use Qualified Code(s): E11.9 - Type 2 diabetes mellitus without complications Is this a current diagnosis for this admission?: YesPlan: stop sliding scale. Decrease to 30u bid - Inpatient Certification Medical Necessity: Failure to Improve With Outpatient Therapy, Need for IV Antibiotics
[2017-03-01] MEDS: FUROSEMIDE 80 MG TABLET PO SCH ×2 (09:47→17:47)
[2017-03-01] MEDS: POTASSIUM CHLORIDE 10 MEQ TABLET.SA PO SCH (09:49)
[2017-03-01] MEDS: MEMANTINE HCL 10 MG TABLET PO SCH ×2 (09:49→17:48)
[2017-03-01] MEDS: CITALOPRAM HYDROBROMIDE 20 MG TABLET PO SCH (09:49)
[2017-03-01] MEDS: METOPROLOL SUCCINATE 50 MG TAB.SR.24H PO SCH (09:49)
[2017-03-01] MEDS: DONEPEZIL HCL 5 MG TABLET PO SCH (09:49)
[2017-03-01] MEDS: DILTIAZEM HCL 240 MG CAPSULE.CR PO SCH (09:49)
[2017-03-01] MEDS: FLUTICASONE NASAL SPRAY 50 MCG/SPRY 120 SPRAY/16 GM NASL SCH (09:50)
[2017-03-01] MEDS: DABIGATRAN ETEXILATE 150 MG CAPSULE PO SCH ×2 (09:50→21:38)
[2017-03-01] MEDS: VANCOMYCIN HCL 1,250 MG in DEXTROSE 5%-WATER 250 ML IV SCH ×2 (09:51→22:50)
[2017-03-01] MEDS: CYCLOSPORINE 0.05% OPH EMULSIO 0.4 ML DROPERETTE OU SCH ×2 (09:51→17:48)
[2017-03-01] MEDS: SIMVASTATIN 10 MG TABLET PO SCH (21:37)
[2017-03-02] MEDS: PIPERACILLIN SODIUM/TAZOBACTAM 4.5 GM in NORMAL SALINE 100 ML IV SCH ×2 (03:39→08:54)
[2017-03-02] MEDS: LEVOTHYROXINE SODIUM 0.05 MG TABLET PO SCH (05:21)
[2017-03-02] MEDS: LANSOPRAZOLE 30 MG TAB.RAP.DR PO SCH (05:21)
[2017-03-02] MEDS ORDERED: HUM INSULIN NPH/REG INSULIN HM 100 UNIT/1 ML 3 ML SUBCUT SCH (05:29)
--- NOTE | 2017-03-02 07:36 | PDOC DISCHARGE SUMMARY ---
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 Is this a current diagnosis for this admission?: Yes - Additional Information Resuscitation Status: Full Code Discharge Diet: Diabetic Discharge Activity: Keep Legs Elevated Home Medications: Albuterol Sulfate [Proair HFA Inhalation Aerosol 8.5 gm MDI] 2 puff IH QIDP PRN 02/27/17 Atorvastatin Calcium [Lipitor 20 mg Tablet] 20 mg PO DAILY 02/27/17 Citalopram Hydrobromide [Celexa 20 mg Tablet] 20 mg PO DAILY 02/27/17 Cyclosporine 0.05% Oph Emulsio [Restasis 0.05% Oph Emulsion Pf 0.4 ml] 1 drop OU BID 02/27/17 Dabigatran Etexilate Mesylate [Pradaxa] 150 mg PO Q12 02/27/17 Dexlansoprazole [Dexilant 60 mg Capsule] 60 mg PO DAILY 02/27/17 Diltiazem HCl [Cardizem Cd] 240 mg PO DAILY 02/27/17 Donepezil HCl [Aricept] 10 mg PO DAILY 02/27/17 Fluticasone Propionate [Flonase Nasal [place] 50 Mcg/[place] 16 gm] 2 spray NASL DAILYP PRN 02/27/17 Furosemide [Lasix] 80 mg PO BID 02/27/17 Hum Insulin NPH/Reg Insulin Hm [Novolin 70-30 100 Unit/ml Vial] 40 units SQ BIDACBS 02/27/17 Levothyroxine Sodium [Synthroid 0.05 mg Tablet] 0.05 mg PO DAILY 02/27/17 Memantine HCl [Namenda 10 mg Tablet] 10 mg PO BID 02/27/17 Metoprolol Succinate [Toprol XL 100 mg Tablet] 100 mg PO DAILY 02/27/17 Potassium Chloride [K-Tab ER] 20 meq PO DAILY 02/27/17 Amox Tr/Potassium Clavulanate [Augmentin 875-125 mg Tablet] 1 tab PO BID #12 tablet 03/02/17 History of Present Illness Patient complains of: pain R leg History of Present Illness: SKIP HER is a 76 year old female with worsening pain around R venous ulcer on clindamycin from wound clinic. Hospital Course Hospital Course: Dr Herrera debrided ulcer. Pain and redness finally today have improved on vanc & zosyn. Physical Exam Vital Signs: Temp Pulse Resp BP Pulse Ox 97.7 F 100 17 152/83 H 96 03/02/17 00:47 03/02/17 00:47 03/02/17 00:47 03/02/17 00:47 03/02/17 00:47 Intake & Output 02/28/17 03/01/17 03/02/17 07:59 07:59 07:59 Intake Total 1792 2200 2110 Output Total 400 Balance 1792 2200 1710 Weight 229 lb 4.492 oz 219 lb 12.814 oz 219 lb 12.814 oz General appearance: PRESENT: no acute distress Respiratory exam: PRESENT: clear to auscultation mari Cardiovascular exam: PRESENT: irregular rhythm. ABSENT: diastolic murmur, systolic murmur, tachycardia Murmur grade: 1 GI/Abdominal exam: ABSENT: mass, organolmegaly, tenderness Extremities exam: ABSENT: pedal edema Skin exam: PRESENT: erythema - receding around R leg ulcer 5cm Results Laboratory Results: 03/01/17 04:02 02/28/17 09:55 Labs- Last Values WBC 8.7 10^3/uL (4.0-10.5) 03/01/17 04:02 RBC 4.41 10^6/uL (3.72-5.28) 03/01/17 04:02 Hgb 13.3 g/dL (12.0-15.5) 03/01/17 04:02 Hct 39.6 % (36.0-47.0) 03/01/17 04:02 MCV 90 fl (80-97) 03/01/17 04:02 MCH 30.2 pg (27.0-33.4) 03/01/17 04:02 MCHC 33.6 g/dL (32.0-36.0) 03/01/17 04:02 RDW 13.3 % (11.5-14.0) 03/01/17 04:02 Plt Count 273 10^3/uL (150-450) 03/01/17 04:02 Seg Neutrophils % 65.4 % (42-78) 03/01/17 04:02 Lymphocytes % 23.2 % (13-45) 03/01/17 04:02 Monocytes % 8.7 % (3-13) 03/01/17 04:02 Eosinophils % 1.8 % (0-6) 03/01/17 04:02 Basophils % 0.9 % (0-2) 03/01/17 04:02 Absolute Neutrophils 5.7 10^3/uL (1.7-8.2) 03/01/17 04:02 Absolute Lymphocytes 2.0 10^3/uL (0.5-4.7) 03/01/17 04:02 Absolute Monocytes 0.7 10^3/uL (0.1-1.4) 03/01/17 04:02 Absolute Eosinophils 0.2 10^3/uL (0.0-0.6) 03/01/17 04:02 Absolute Basophils 0.1 10^3/uL (0.0-0.2) 03/01/17 04:02 Sodium 144.2 mmol/L (137-145) 02/27/17 05:03 Potassium 3.9 mmol/L (3.6-5.0) 02/27/17 05:03 Chloride 104 mmol/L (98-107) 02/27/17 05:03 Carbon Dioxide 30 mmol/L (22-30) 02/27/17 05:03 Anion Gap 10 (5-19) 02/27/17 05:03 BUN 13 mg/dL (7-20) 02/27/17 05:03 Creatinine 0.73 mg/dL (0.52-1.25) 02/28/17 09:55 Est GFR ( Amer) > 60 (>60) 02/28/17 09:55 Est GFR (Non-Af Amer) > 60 (>60) 02/28/17 09:55 Glucose 114 mg/dL (75-110) H 02/27/17 05:03 POC Glucose 138 mg/dL (70-110) H 03/02/17 06:50 Hemoglobin A1c % 8.7 % (4.7-6.0) H 02/26/17 19:20 Calcium 8.7 mg/dL (8.4-10.2) 02/27/17 05:03 Total Bilirubin 0.5 mg/dL (0.2-1.3) 02/26/17 19:20 Direct Bilirubin 0.3 mg/dL (0.0-0.4) 02/26/17 19:20 Indirect Bilirubin Not Reportable 02/26/17 19:20 Neonat Total Bilirubin Not Reportable 02/26/17 19:20 AST 44 U/L (14-36) H 02/26/17 19:20 ALT 42 U/L (9-52) 02/26/17 19:20 Alkaline Phosphatase 102 U/L (38-126) 02/26/17 19:20 Total Protein 7.1 g/dL (6.3-8.2) 02/26/17 19:20 Albumin 4.0 g/dL (3.5-5.0) 02/26/17 19:20 Time Trough Drawn 0955 02/28/17 09:55 Vancomycin Trough 7.4 ug/mL (5.0-20.0) 02/28/17 09:55 C. difficile Tox (PCR) NEGATIVE (NEGATIVE) 03/01/17 08:15 Qualifiers PATEINT BEING DISCHARGED WITH ANY OF THE FOLLOWING DIAGNOSIS?: No Plan Discharge Plan: home on augmentin bid and duoderm twice a week. 6d ov. Continue wound clinic too.
[2017-03-02] MEDS: DONEPEZIL HCL 5 MG TABLET PO SCH (09:00)
[2017-03-02] MEDS: DABIGATRAN ETEXILATE 150 MG CAPSULE PO SCH (09:01)
[2017-03-02] MEDS: FUROSEMIDE 80 MG TABLET PO SCH (09:01)
[2017-03-02] MEDS: METOPROLOL SUCCINATE 50 MG TAB.SR.24H PO SCH (09:01)
[2017-03-02] MEDS: DILTIAZEM HCL 240 MG CAPSULE.CR PO SCH (09:01)
[2017-03-02] MEDS: FLUTICASONE NASAL SPRAY 50 MCG/SPRY 120 SPRAY/16 GM NASL SCH (09:01)
[2017-03-02] MEDS: CITALOPRAM HYDROBROMIDE 20 MG TABLET PO SCH (09:01)
[2017-03-02] MEDS: CYCLOSPORINE 0.05% OPH EMULSIO 0.4 ML DROPERETTE OU SCH (09:01)
[2017-03-02] MEDS: MEMANTINE HCL 10 MG TABLET PO SCH (09:01)
[2017-03-02] MEDS: POTASSIUM CHLORIDE 10 MEQ TABLET.SA PO SCH (09:01)
[2017-03-02] MEDS: VANCOMYCIN HCL 1,250 MG in DEXTROSE 5%-WATER 250 ML IV SCH (10:21)
[2017-03-02 11:54] VITALS: BP 125/71
== END 2017-03-02 14:20 | disposition home health service (06) | DRG 638 ==
LOC: ER 18:28 → EH 21:13 → 4N 23:41
PROVIDERS: ADMIT Internal Medicine; ATTEND Internal Medicine
PROC: 0HDKXZZ Extraction of Right Lower Leg Skin, External Approach (ICD-10-PCS; principal; 2017-02-27)
PROC: 3E0F73Z Introduction of Anti-inflammatory into Respiratory Tract, Via Natural or Artificial Opening (ICD-10-PCS; 2017-02-27)
DX: E11.621 Type 2 diabetes mellitus with foot ulcer (principal); L03.115 Cellulitis of right lower limb; L97.519 Non-pressure chronic ulcer of other part of right foot with unspecified severity; I83.013 Varicose veins of right lower extremity with ulcer of ankle; F03.90 Unspecified dementia, unspecified severity, without behavioral disturbance, psychotic disturbance, mood disturbance, and anxiety; I48.91 Unspecified atrial fibrillation; E78.5 Hyperlipidemia, unspecified; I11.0 Hypertensive heart disease with heart failure; I50.9 Heart failure, unspecified; K21.9 Gastro-esophageal reflux disease without esophagitis; M19.90 Unspecified osteoarthritis, unspecified site; F32.9 Major depressive disorder, single episode, unspecified; D64.9 Anemia, unspecified; Z79.4 Long term (current) use of insulin; Z96.641 Presence of right artificial hip joint; Z79.899 Other long term (current) drug therapy; Z88.6 Allergy status to analgesic agent; Z90.710 Acquired absence of both cervix and uterus; Z83.3 Family history of diabetes mellitus; Z82.49 Family history of ischemic heart disease and other diseases of the circulatory system; M25.511 Pain in right shoulder; M25.611 Stiffness of right shoulder, not elsewhere classified
CPT/HCPCS: 36415; 80048; 80053; 80202; 82565; 82962; 83036; 85025; 87040; 87070; 87075; 87205; 87493; 96365; 96372; 96375; 99284; J1644; J1815; J2543; J3370; J3490; J7030; J7060; J7620

== ENCOUNTER → 2017-05-18 | Outpatient (CLI) | payer MEDICARE, MEDICAID ==
[2017-05-18 16:25] LABS: ABSOLUTE BASOPHILS # (AUTO) 0.1 10^3/uL (0.0-0.2); ABSOLUTE EOSINOPHILS # (AUTO) 0.2 10^3/uL (0.0-0.6); ABSOLUTE LYMPHOCYTES (AUTO) 1.5 10^3/uL (0.5-4.7); ABSOLUTE MONOCYTES (AUTO) 0.5 10^3/uL (0.1-1.4); ABSOLUTE NEUT (AUTO) 4.8 10^3/uL (1.7-8.2); EOSINOPHILS % (AUTO) 2.4 % (0-6); HEMATOCRIT 41.1 % (36.0-47.0); HEMOGLOBIN 14.2 g/dL (12.0-15.5); HGB HCT DIFFERENCE 1.5; LYMPHOCYTES % (AUTO) 21.4 % (13-45); MEAN CORPUSCULAR HEMOGLOBIN 31.1 pg (27.0-33.4); MEAN CORPUSCULAR HGB CONC 34.5 g/dL (32.0-36.0); MEAN CORPUSCULAR VOLUME 90 fl (80-97); MONOCYTES % (AUTO) 7.3 % (3-13); RED BLOOD COUNT 4.55 10^6/uL (3.72-5.28); RED CELL DISTRIBUTION WIDTH 12.6 % (11.5-14.0); SEGMENTED NEUTROPHILS % (AUTO) 67.9 % (42-78)
[2017-05-18 17:22] LABS: FERRITIN 42.9 ng/mL (11.1-264.0)
== END ==
LOC: OD 15:35
PROVIDERS: ATTEND Specialist
DX: R10.9 Unspecified abdominal pain (principal); D50.9 Iron deficiency anemia, unspecified; R97.0 Elevated carcinoembryonic antigen [CEA]
CPT/HCPCS: 36415; 82378; 82728; 83540; 85025

== ENCOUNTER → 2017-08-09 | Outpatient (CLI) | payer MEDICARE, MEDICAID ==
--- NOTE | 2017-08-09 16:05 | RADIOLOGY REPORT (SQ) ---
EXAM DESCRIPTION: BARIUM ENEMA W/AIR COMPLETED DATE/TIME: 08/09/2017 12:26 pm REASON FOR STUDY: K63.5 POLYP OF COLON K63.5 POLYP OF COLON COMPARISON: None. FLUOROSCOPY TIME: 2.4 minutes 40 images saved to PACS. TECHNIQUE: Following retrograde filling of the colon with barium and air, fluoroscopic spot and over head imaging of the colon was obtained and saved to PACS. LIMITATIONS: None. FINDINGS: [employer] film was unremarkable. Extensive diverticula throughout the colon. Well-circumscri bed persistent filling defect in the cecum measuring about 10 mm. No significant additional findings on post evacuation. IMPRESSION: Extensive diverticulosis. Sessile polyp in the cecum. COMMENT: Quality ID [id number]: Final reports for procedures using fluoroscopy that document radiation exp osure indices, or exposure time and number of fluorographic images (if radiation exposure indices are not available) TECHNICAL DOCUMENTATION: JOB ID: [id number] [employer]- All Rights Reserved
== END ==
LOC: RAD 09:36
PROVIDERS: ATTEND Specialist
DX: K63.5 Polyp of colon (principal)
CPT/HCPCS: 74280